=== PATIENT | female | born 1945 | race Caucasian/White ===

== ENCOUNTER 2018-12-07 13:39 | Outpatient (CLI) | payer MEDICARE ==
--- NOTE | 2018-12-07 13:53 | RAD ---
Lumbar spine 2 views: 12/07/2018 COMPARISON: None HISTORY: Low back pain with left leg pain FINDINGS: There is prominent levoscoliosis of the mid lumbar spine. Postsurgical clips are noted with in the mid left abdomen. No significant anterolisthesis or retrolisthesis noted. Multilevel bilateral facet hypertrophy noted within the mid lumbar spine on the right in the lower marian mbar spine on the left. No acute osseous abnormality noted. There is significant multilevel disc space narrowing and degenera tive endplate change at L3-4, L4-5, and L5-S1. IMPRESSION: Multilevel degenerative change within the lumbar spine as detailed above.
== END 2018-12-07 13:40 | disposition home or self-care (01) ==
LOC: TBSIIMAG 13:39
PROVIDERS: ATTEND Surgery
DX: M54.5 Low back pain (principal); M47.816 Spondylosis without myelopathy or radiculopathy, lumbar region; M47.817 Spondylosis without myelopathy or radiculopathy, lumbosacral region
CPT/HCPCS: 72100

== ENCOUNTER 2019-03-02 09:27 | Day surgery (SDC) | payer MEDICARE ==
[2019-03-02 10:44] LABS: INR-International Normal Ratio 0.9; PTT 27.9 SEC (22.9-36.1); Prothrombin Time 12.4 SEC (12.0-14.7)
[2019-03-02 10:46] LABS: Hemoglobin 16.1 g/dL (12.0-16.0); Mean Corpuscular HGB CONC 32.6 g/dL (32.0-36.0); Mean Corpuscular Hemoglobin 31.9 pg (27.0-31.0); Mean Corpuscular Volume 97.8 fL (78.0-98.0); Mean Platelet Volume 7.6 fL (7.4-10.4); Platelet Count 249 thou/uL (130-400); RBC Distribution Width 11.8 % (11.5-14.5); Red Blood Cell (RBC) Count 5.04 mill/uL (4.20-5.40); White Blood Cell (WBC) Count 6.7 thou/uL (4.8-10.8)
[2019-03-02 11:05] LABS: Anion Gap 15 mmol/L (10-20); BUN (Urea Nitrogen) 17 mg/dL (9.8-20.1); Calc. Creatinine Clearance 82 mL/min (70-130); Calcium 9.4 mg/dL (7.8-10.44); Carbon Dioxide 21 mmol/L (23-31); Chloride 111 mmol/L (98-107); Estimated GFR-MDRD 65; Glucose 80 mg/dL (83-110); Sodium 142 mmol/L (136-145)
[2019-03-02] MEDS ORDERED: Sodium Chloride 0.9% 10 ML ONE (13:06)
[2019-03-02] MEDS ORDERED: Fentanyl 250 MCG/5 ML VIAL ONE (13:15)
[2019-03-02] MEDS ORDERED: Glycopyrrolate 0.2 MG/ML 5 ML SYRINGE ONE (15:03)
[2019-03-02] MEDS ORDERED: Vecuronium 10 MG VIAL ONE (15:03)
[2019-03-02] MEDS ORDERED: ePHEDrine/0.9% NaCl/PF SYRINGE 50 mg/10 ml ONE (15:03)
[2019-03-02] MEDS ORDERED: PROPOFOL 200 MG/20 ML VIAL ONE (15:03)
[2019-03-02] MEDS ORDERED: Ondansetron PF 4 MG/2 ML Vial ONE (15:03)
[2019-03-02] MEDS ORDERED: Dexamethasone 20 MG/5 ML VIAL ONE (15:03)
[2019-03-02] MEDS ORDERED: Lidocaine 1% PF 5 ML VIAL ONE (15:03)
[2019-03-02] MEDS ORDERED: Bisacodyl 10 MG SUPP PR PRN (16:18)
[2019-03-02] MEDS ORDERED: HYDROcodone/Acetaminophen 7.5/325 mg Tablet PO PRN (16:18)
[2019-03-02] MEDS ORDERED: Fleet Enema 133 ML BOT PR PRN (16:18)
[2019-03-02] MEDS ORDERED: Acetaminophen/Codeine 30-300mg Tablet PO PRN (16:18)
[2019-03-02] MEDS ORDERED: Acetaminophen 325 MG TAB PO PRN (16:18)
[2019-03-02] MEDS ORDERED: tiZANidine HCl 4 MG TAB PO PRN (16:18)
[2019-03-02] MEDS ORDERED: traMADol HCl 50 MG TAB PO PRN (16:18)
[2019-03-02] MEDS ORDERED: Mag-Al 1200 mg/1200 mg/30 ML UDCUP PO PRN (16:18)
[2019-03-02] MEDS ORDERED: Milk Of Magnesia 30 ML UDCUP PO PRN (16:18)
[2019-03-02] MEDS ORDERED: Ondansetron PF 4 MG/2 ML Vial IVP PRN (16:18)
[2019-03-02] MEDS ORDERED: Lorazepam 0.5 MG TAB PO PRN (16:20)
[2019-03-02] MEDS ORDERED: Fentanyl 100 MCG/2 ML VIAL ONE ×3 (16:48→19:07)
[2019-03-02] MEDS: Sodium Chloride 0.9% 1,000 ML IV SCH (18:42)
[2019-03-02] MEDS ORDERED: Promethazine HCl 25 MG/ML VIAL IM PRN (19:09)
[2019-03-02] MEDS ORDERED: Ondansetron HCl/PF 4 MG/2 ML Vial IVP PRN (19:09)
[2019-03-02] MEDS ORDERED: Promethazine HCl 25 MG/ML VIAL SLOW IVP PRN (19:09)
[2019-03-02] MEDS ORDERED: Montelukast Sodium 10 mg Tablet PO SCH (21:00)
[2019-03-02] MEDS ORDERED: Atorvastatin Calcium 10 MG TAB PO SCH (21:00)
[2019-03-02] MEDS: HYDROcodone/Acetaminophen 7.5/325 mg Tablet PO PRN (21:22)
[2019-03-02] MEDS: CEFAZOLIN 2 GM in Premix Bag 1 BAG IVPB SCH (21:24)
[2019-03-02 22:39] VITALS: BMI 34.1
[2019-03-03 00:22] VITALS: BP 104/65; TEMP 97.8
[2019-03-03] MEDS ORDERED: HYDROcodone/Acetaminophen 7.5/325 mg Tablet ONE (04:36)
[2019-03-03] MEDS: HYDROcodone/Acetaminophen 7.5/325 mg Tablet PO PRN ×2 (08:58→13:10)
--- NOTE | 2019-03-03 11:41 | PRG ---
DATE OF SERVICE: 03/03/2019 SUBJECTIVE: Ms. Rowley is doing well postoperative left L5 decompression with trans-facet approach. She has had resolution in her leg pain and paresthesias. Her strength is good. She is mobilizing. We will plan to dismiss. Job ID: [id number]
--- NOTE | 2019-03-03 11:42 | OP ---
DATE OF PROCEDURE: 03/02/2019 LOCATION: OR 12. WOUND CLASSIFICATION: Type 1 wound. TECHNICAL ARTIST: Prabhu Rodriguez PA-C. PREPROCEDURE DIAGNOSES: Left L5 radiculopathy, left L5 lateral far-lateral stenosis with disk extrusion, facet hypertrophy. POSTPROCEDURE DIAGNOSES: Left L5 radiculopathy, left L5 lateral far-lateral stenosis with disk extrusion, facet hypertrophy. PROCEDURES PERFORMED: 1. Left L5-S1 transfacet approach for lateral far lateral diskectomy and decompression of the exiting left L5 nerve root, lateral far lateral regions. 2. Use of operative microscope for microdissection. DESCRIPTION OF PROCEDURE: After informed consent was obtained from the patient, the patient was brought to the OR. Proper patient, pause, and identification were carried out. She was placed under excellent general endotracheal anesthesia and positioned prone on the OR table. All appropriate points were padded. We identified L5-S1 segment, and a linear judith was made over this region dorsally. This area was sterilely cleansed, prepared, and draped. Proper patient, pause, and identification were carried out. The wound was then opened with a combination of sharp, monopolar, and blunt dissection. The left L5 hemilamina was exposed along with the left L5-S1 facet complex. A transfacet approach was used for a lateral far lateral diskectomy with excellent decompression of the left L5 exiting nerve root. We also removed osteophytic overgrowth from the superior articular process of left L5-S1 complex as well. We were pleased with the decompression and copious irrigation occurred throughout as did maximizing hemostasis. The wound was then closed in anatomic layers following sprinkling of vancomycin powder. Job ID: [id number]
[2019-03-03] MEDS: Sodium Chloride 0.9% 1,000 ML IV SCH (13:14)
[2019-03-03] MEDS: CEFAZOLIN 2 GM in Premix Bag 1 BAG IVPB SCH (13:15)
--- NOTE | 2019-03-04 21:23 | EKG ---
Test Reason : PREOP Blood Pressure : / mmHG Vent. Rate : 058 BPM Atrial Rate : 058 BPM P-R Int : 132 ms QRS Dur : 088 ms QT Int : 416 ms P-R-T Axes : 017 006 037 degrees QTc Int : 408 ms Sinus bradycardia Otherwise normal ECG Confirmed by Daisy MATTSON ([id number]) on 03/04/2019 9:23:30 PM Referred By: BAY Confirmed By:Daisy MATTSON
== END 2019-03-03 13:26 | disposition home or self-care (01) ==
LOC: SDC 09:27 → SJJU 19:32 → SDC 03-03 13:26
PROVIDERS: ATTEND Surgery
PROC: 0ST20ZZ Resection of Lumbar Vertebral Disc, Open Approach (ICD-10-PCS; principal; 2019-03-02)
DX: M48.061 Spinal stenosis, lumbar region without neurogenic claudication (principal); M51.16 Intervertebral disc disorders with radiculopathy, lumbar region; Z79.899 Other long term (current) drug therapy; Z88.5 Allergy status to narcotic agent; Z88.8 Allergy status to other drugs, medicaments and biological substances; Z91.048 Other nonmedicinal substance allergy status
CPT/HCPCS: 36415; 76000; 80048; 85027; 85610; 85730; 93005; 93010; J0690; J1100; J2001; J2405; J2704; J3010; J3370; J3490

== ENCOUNTER 2023-04-11 12:12 | Outpatient (CLI) | payer MEDICARE ==
[2023-04-11 13:25] LABS: Hematocrit 46.3 % (34.9-44.5); Hemoglobin 15.3 g/dL (12.0-15.5); Mean Corpuscular Hemoglobin 31.9 pg (27.0-33.0); Mean Corpuscular Volume 96.7 fl (81.6-98.3); Mean Platelet Volume 10.4 fl (7.4-10.4); Platelet Count 258 10x3/uL (150-450); RBC Distribution Width 13.2 % (11.5-14.5); Red Blood Cell (RBC) Count 4.79 10x6/uL (3.90-5.03)
[2023-04-11 13:31] LABS: Anion Gap 16 mmol/L (10-20); BUN (Urea Nitrogen) 18 mg/dL (9.8-20.1); Calc. Creatinine Clearance 0 mL/min (70-130); Calcium 9.2 mg/dL (7.8-10.44); Carbon Dioxide 24 mmol/L (23-31); Chloride 108 mmol/L (98-107); Estimated GFR 61; Glucose 84 mg/dL (83-110); Potassium 4.9 mmol/L (3.5-5.1); Sodium 143 mmol/L (136-145)
[2023-04-11 13:37] LABS: INR-International Normal Ratio 0.9; PTT 30.8 sec (22.0-33.0); Prothrombin Time 10.1 sec (9.5-12.1)
== END 2023-04-11 12:13 | disposition home or self-care (01) ==
LOC: LABBT 12:12
PROVIDERS: ATTEND Surgery
DX: Z01.818 Encounter for other preprocedural examination (principal); M48.02 Spinal stenosis, cervical region
CPT/HCPCS: 80048; 85027; 85610; 85730; 93005; 93010

== ENCOUNTER 2023-05-08 06:54 | Inpatient (IN) | payer MEDICARE ==
[2023-04-11 12:28] VITALS: BMI 30.7
[2023-05-08 07:50] LABS: #Basophils 0.1 thou/uL (0.0-0.2); #Eosinphils 0.3 thou/uL (0.0-0.7); #Monocytes 0.7 thou/uL (0.11-0.59); %Basophils 0.8 % (0.0-1.0); %Eosinophils 3.3 % (0.0-10.0); %Lymphocytes 20.4 % (21.0-51.0); %Monocytes 9.6 % (0.0-10.0); %Neutrophils 65.6 % (42.0-75.0); Hematocrit 48.5 % (36.0-47.0); Hemoglobin 15.9 g/dL (12.0-16.0); Mean Corpuscular HGB CONC 32.8 g/dL (32.0-36.0); Mean Corpuscular Hemoglobin 32.3 pg (27.0-31.0); Mean Corpuscular Volume 98.6 fl (78.0-98.0); Mean Platelet Volume 10.3 fL (7.4-10.4); Platelet Count 235 10x3/uL (130-400); RBC Distribution Width 13.1 % (11.5-14.5); Red Blood Cell (RBC) Count 4.92 mill/uL (4.20-5.40); White Blood Cell (WBC) Count 7.7 10x3/uL (4.8-10.8)
[2023-05-08] MEDS ORDERED: Lidocaine 2% PF 5 ML VIAL ONE (07:55)
[2023-05-08] MEDS ORDERED: PROPOFOL 20 ML ONE (07:55)
[2023-05-08] MEDS ORDERED: Rocuronium Bromide 10 MG/ML (10ML VIAL) ONE (07:55)
[2023-05-08] MEDS ORDERED: fentaNYL PF 100 MCG/2 ML SYRINGE ONE ×3 (07:56→11:08)
[2023-05-08 08:03] LABS: INR-International Normal Ratio 0.9; PTT 27.4 sec (22.9-36.1); Prothrombin Time 12.2 sec (12.0-14.7)
[2023-05-08 09:00] LABS: Calcium 8.7 mg/dL (7.8-10.44); Chloride 109 mmol/L (98-107); Potassium 4.2 mmol/L (3.5-5.1); Sodium 140 mmol/L (136-145)
[2023-05-08 09:01] LABS: Glucose 87 mg/dL (83-110)
[2023-05-08 09:02] LABS: Anion Gap 12 mmol/L (10-20); Carbon Dioxide 23 mmol/L (23-31)
[2023-05-08] MEDS ORDERED: CEFAZOLIN 2 GM VIAL ONE (09:03)
[2023-05-08 09:04] LABS: Calc. Creatinine Clearance 72 mL/min (70-130); Estimated GFR 71
[2023-05-08] MEDS ORDERED: Sodium Chloride 0.9% 100 ML ONE (09:04)
[2023-05-08 09:05] LABS: BUN (Urea Nitrogen) 19 mg/dL (9.8-20.1)
[2023-05-08] MEDS ORDERED: SUCCINYLCHOLINE/SOD CL,ISO/PF 200 MG/10 ML SYRINGE FS ONE (09:08)
[2023-05-08] MEDS ORDERED: Thrombin 5000 UNITS/5 ML VIAL ONE (09:15)
[2023-05-08] MEDS ORDERED: SUGAMMADEX SODIUM 200 MG/2 ML VIAL ONE (10:47)
[2023-05-08] MEDS ORDERED: ePHEDrine Sulfate 50 MG/10 ML VIAL ONE (10:56)
[2023-05-08] MEDS ORDERED: Milk Of Magnesia 30 ML UDCUP PO PRN (11:12)
[2023-05-08] MEDS ORDERED: Acetaminophen 325 MG TAB PO PRN (11:12)
[2023-05-08] MEDS ORDERED: diphenhydrAMINE 25 MG CAP PO PRN (11:12)
[2023-05-08] MEDS ORDERED: traMADol HCl 50 MG TAB PO PRN (11:12)
[2023-05-08] MEDS ORDERED: Lorazepam 0.5 MG TAB PO PRN (11:14)
[2023-05-08] MEDS ORDERED: Montelukast Sodium 10 mg Tablet PO PRN (11:14)
[2023-05-08] MEDS ORDERED: hydrALAZINE 20 MG/ML VIAL SLOW IVP PRN (11:15)
[2023-05-08] MEDS ORDERED: Phenol 177 ML BOT PO PRN (11:15)
[2023-05-08] MEDS ORDERED: hydrALAZINE 20 MG/ML VIAL ONE (11:33)
[2023-05-08] MEDS ORDERED: Metoprolol Tartrate 5 MG (5 mL) VIAL ONE (11:33)
[2023-05-08] MEDS ORDERED: fentaNYL 50 mcg/mL 1 mL Vial ONE (12:16)
[2023-05-08] MEDS: fentaNYL 50 mcg/mL 1 mL Vial SLOW IVP PRN (13:58)
[2023-05-08] MEDS: Sodium Chloride 0.9% 1,000 ML IV SCH (14:00)
[2023-05-08] MEDS: Acetaminophen/Codeine 30-300mg Tablet PO PRN (14:01)
[2023-05-08] MEDS: Ondansetron PF 4 MG/2 ML Vial IVP PRN (14:01)
[2023-05-08] MEDS: HYDROcodone/Acetaminophen 5/325 mg Tablet PO PRN (16:31)
[2023-05-08] MEDS: tiZANidine HCl 4 MG TAB PO PRN (16:36)
[2023-05-08] MEDS: CEFAZOLIN 2 GM in Sodium Chloride 0.9% 100 ML IVPB SCH (16:39)
[2023-05-08] MEDS: Atorvastatin Calcium 10 MG TAB PO SCH (20:18)
[2023-05-09] MEDS: Lisinopril 10 MG TAB PO SCH (09:10)
[2023-05-09] MEDS: Dexamethasone 4 MG TAB PO SCH (09:10)
[2023-05-10 12:00] VITALS: BP 164/85; TEMP 98.1
[2023-05-11] MEDS ORDERED: Dexamethasone 4 MG TAB PO SCH (08:00)
[2023-05-13] MEDS ORDERED: Dexamethasone 4 MG TAB PO SCH (08:00)
[2023-05-15] MEDS ORDERED: Dexamethasone 1 MG TAB PO SCH (08:00)
== END 2023-05-10 15:13 | disposition home or self-care (01) | DRG 473 ==
LOC: SDC 06:54 → SURG A 11:19 → OBSVTOIN 05-09 06:37
PROVIDERS: ADMIT Surgery; ATTEND Surgery
PROC: 0RG20A0 Fusion of 2 or more Cervical Vertebral Joints with Interbody Fusion Device, Anterior Approach, Anterior Column, Open Approach (ICD-10-PCS; principal; 2023-05-08)
PROC: 00NW0ZZ Release Cervical Spinal Cord, Open Approach (ICD-10-PCS; 2023-05-08)
PROC: 01N10ZZ Release Cervical Nerve, Open Approach (ICD-10-PCS; 2023-05-08)
PROC: 0RB30ZZ Excision of Cervical Vertebral Disc, Open Approach (ICD-10-PCS; 2023-05-08)
DX: M48.02 Spinal stenosis, cervical region (principal); M54.12 Radiculopathy, cervical region
CPT/HCPCS: 36415; 80048; 85025; 85610; 85730; 93005; 93010; C1713; J0360; J2001; J2405; J2704; J3010; J3490; J7050; J8540